=== PATIENT | female | born 2000 | race Caucasian/White ===

== ENCOUNTER 2022-02-20 15:48 | Emergency (ER) | payer OTHER, SELFPAY ==
[2022-02-20 16:18] VITALS: BP 130/91; PULSE 103; RESP 16; TEMP 37.2; O2SAT 100
--- NOTE | 2022-02-20 16:50 | ED.GENADULT ---
HPI - General Adult General Chief complaint: Upper Respiratory Infection Stated complaint: fever, sore throat, chest pain, chills Source: patient and family Mode of arrival: ambulatory Limitations: no limitations History of Present Illness HPI narrative: Patient presents for evaluation of sick symptoms since yesterday. Symptoms include hot flashes, chills, sore throat, postnasal drainage, productive cough for, body aches, and fatigue. No nausea, vomiting or diarrhea. She recently spent time with a friend who had similar symptoms. Pt has had COVID twice, once in 2019 and another time in 2020. She has received COVID vaccinations and a booster. She took ibuprofen earlier today which seemed to help her symptoms. She took a home COVID test which was negative. No additional complaints or concerns. Review of Systems Review of Systems: CONSTITUTIONAL: reports of flashes, fatigue and chills EYES: Denies visual changes, redness, or discharge. ENT: Reports sinus congestion, postnasal drainage, sore throat. CARDIOVASCULAR: Denies chest pain, palpitations, or edema. RESPIRATORY: Reports cough. Denies shortness of breath. GASTROINTESTINAL: Denies abdominal pain, nausea, vomiting, or diarrhea. GENITOURINARY: Denies dysuria or hematuria. SKIN: Denies rash or itching. MUSCULOSKELETAL: Reports generalized body aches. NEUROLOGIC: Denies headache, numbness, dizziness, or weakness. PSYCHIATRIC: Denies anxiety or depression. [facility] Past Medical History Medical History (Updated 02/20/22 @ 17:19 by Castro Oconnell, [facility], [place], ) Depression Surgical History Surgical History (Reviewed 02/20/22 @ 16:53 by Castro Oconnell, [facility] [place], ) No pertinent past surgical history Family History Family History (Reviewed 02/20/22 @ 16:[address] [facility] [place], ) Mother Family history non-contributory Social History Social History (Reviewed 02/20/22 @ 16:[address] [facility] [place], ) Smoking status: Never smoker Alcohol intake: never Substance use: never Gender identity (if verbalized by the patient): Female Spiritual care concerns: No Exam Narrative: GENERAL: Well-appearing, well-nourished, and in no acute distress. HEAD: Normocephalic, atraumatic. EYES: PERRLA and EOMI. ENT: Nares clear, no rhinorrhea or epistaxis. Mucous membranes moist. Oropharynx without tonsillar hypertrophy exudate or other lesions. Bilateral TMs pearly persaud nonbulging NECK: Supple. No adenopathy or masses. No carotid bruits or JVD CHEST: Clear to auscultation. No respiratory distress. No wheezes rales or rhonchi HEART: Regular rate and rhythm. No murmur heard. Normal peripheral pulses. ABDOMEN: Soft, nontender, nondistended, normal active bowel sounds. EXTREMITIES: Normal range of motion. No edema. SKIN: Warm, dry, no rash. NEURO: No focal deficits. Alert and oriented x3. PSYCH: Normal mood and affect. Course Course Emergency Course: This is a 22-year-old female who presented for evaluation of sick symptoms. She took a home COVID test which was negative. Influenza and strep were negative. Exam is consistent with acute viral syndrome. Advised to increase hydration and rest at home. [id number] agents including ibuprofen, Mucinex and Sudafed may be helpful. Follow up with primary care this coming week go to the ER for worsening symptoms. Patient is in agreement with plan of care. Level of Care: Express Care Visit Vital Signs Vital signs: Vital Signs Temperature 37.2 C 02/20/22 16:18 Pulse Rate 103 H 02/20/22 16:18 Respiratory Rate 16 02/20/22 16:18 Blood Pressure 130/91 H 02/20/22 16:18 Pulse Oximetry 100 02/20/22 16:18 Oxygen Delivery Room Air 02/20/22 16:18 Temperature 37.2 C 02/20/22 16:18 Pulse Rate 103 H 02/20/22 16:18 Respiratory Rate 16 02/20/22 16:18 Blood Pressure 130/91 H 02/20/22 16:18 Pulse Oximetry 100 02/20/22 16:18 Oxygen Delivery Room Air 02/20/22 16:18 Medical
== END 2022-02-20 17:25 | disposition home or self-care (01) ==
PROVIDERS: Emergency Provider Nurse Practitioner; PCP Physician Assistant
DX: B34.9 Viral infection, unspecified (principal); Z86.16 Personal history of COVID-19
CPT/HCPCS: 87081; 87804; 87880; 99213; G0463